=== PATIENT | female | born 1965 | race Caucasian/White ===

== ENCOUNTER 2017-04-24 18:07 | Emergency (ER) | payer SELFPAY ==
[~2017-04-24] VITALS: Ht 160 cm; Wt 81.6 kg
[2017-04-24] MEDS ORDERED: ONDANSETRON PF 4 MG/2 ML VIAL. ONE (18:11)
[2017-04-24] MEDS ORDERED: IV NORMAL SALINE 500ML BAG 500 ML IV ONE (18:30)
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
[2017-04-24] MEDS ORDERED: ONDANSETRON PF 4 MG/2 ML VIAL. IV ONE (19:00)
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
[2017-04-24 19:55] VITALS: BP 114/71
[2017-04-24] MEDS ORDERED: CYCL10TA2 PO (20:03)
[2017-04-24] MEDS ORDERED: NAPR-695 PO (20:05)
== END 2017-04-24 20:21 | disposition home or self-care (01) ==
LOC: ER 18:07
DX: S16.1XXA Strain of muscle, fascia and tendon at neck level, initial encounter (principal); M54.5 Low back pain; R51 Headache; Z88.5 Allergy status to narcotic agent; V43.52XA Car driver injured in collision with other type car in traffic accident, initial encounter; Y93.I9 Activity, other involving external motion; Y92.410 Unspecified street and highway as the place of occurrence of the external cause; Y99.8 Other external cause status
CPT/HCPCS: 70450; 72125; 72131; 96361; 96374; 99284; J2405; J7040

== ENCOUNTER → 2020-03-16 | Outpatient (CLI) | payer OTHER ==
[~2020-03-16] MED LIST: CYCL10TA2 PO; NAPR-695 PO
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
--- NOTE | 2020-03-16 11:22 | KCIC ---
STUDY: MRI of the left shoulder without contrast INDICATION: Left shoulder pain. COMPARISON: Left shoulder radiographs 08/31/2019 TECHNIQUE: Multiplanar MR imaging of the left shoulder performed without the use of intravenous or intra-articular contrast. FINDINGS: AC joint: Mild AC joint arthrosis. Trace mass effect on the supraspinatus myotendinous junction due to subclavicular spurring, image 12 series 7. Small volume fluid within the subacromial subdeltoid bursa Rotator cuff: The supraspinatus is somewhat thinned but no discrete tear is seen to account for this configuration. Fluid overlying the anterior to mid supraspinatus is within the bursa and the bursal sided fibers are smooth. No high-grade infraspinatus or teres minor tear. The subscapularis is intact. Normal rotator cuff muscular bulk and signal. Labrum: Poorly delineated posterior/superior aspect is favored artifact from magic angle. No discrete tear. Long head biceps tendon: Intact and normally located. Cartilage: Intact. Bones: No acute fracture or aggressive marrow signal abnormality. Miscellaneous: Normal volume shoulder joint fluid. Unremarkable axillary soft tissues. Impression: 1. No high-grade or full-thickness rotator cuff tear. Intact labrum and long head biceps tendon. 2. Small volume fluid within the subacromial subdeltoid bursa suggesting mild bursitis. Mild AC joint arthrosis with small subclavicular spurring exerting trace mass effect on the supraspinatus myotendinous junction. Electronically signed by: ALEXIA MCCARTY MD (03/16/2020 11:20 AM) [id number]
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
== END ==
LOC: KCIC MRI 07:55
PROVIDERS: ATTEND Family Medicine
DX: M47.812 Spondylosis without myelopathy or radiculopathy, cervical region (principal); M48.02 Spinal stenosis, cervical region; M19.012 Primary osteoarthritis, left shoulder; M51.36 Other intervertebral disc degeneration, lumbar region
CPT/HCPCS: 72141; 72148; 73221

== ENCOUNTER 2020-05-03 20:38 | Inpatient (IN) | payer OTHER ==
[~2020-05-03] VITALS: Ht 160 cm; Wt 52.2 kg
[2020-05-03 20:38] VITALS: BP 142/82
--- NOTE | 2020-05-03 20:40 | NUR ---
Patient admitted from [facility] ER via ambulance to room 418. Admitting diagnosis: abdominal pain RUQ with acute cholecystitis. Patient is allergic to Morphine. Patient is alert and oriented X4. Patient is NPO. Patient stated that her abdominal pain started on Thursday and progressively worsens into and she went to the ER. Abdominal ultrasound positive for acute Cholecystitis. Patient was brought to [facility] for surgical evaluation. Will continue to monitor.
[2020-05-03] MEDS ORDERED: ONDANSETRON PF 4 MG/2 ML VIAL. IVP PRN (21:30)
[2020-05-03] MEDS ORDERED: PROCHLORPERAZINE 10 MG/2 ML VIAL. IVP PRN (21:30)
[2020-05-03] MEDS ORDERED: BISACODYL 10 MG SUPP.RECT. PR PRN (21:30)
[2020-05-03] MEDS ORDERED: fentaNYL PF VIAL 100 MCG/2 ML VIAL IVP PRN (21:30)
[2020-05-03] MEDS ORDERED: IV RINGERS,LACTATED 1000ML 1,000 ML IV SCH (21:30)
[2020-05-03] MEDS ORDERED: METO-239 PO (21:40)
[2020-05-03] MEDS ORDERED: LEVO175T5 PO (21:40)
[2020-05-03] MEDS ORDERED: DEXTROSE 50% 25 GM / 50ML DISP.SYRIN. IV PRN (21:45)
[2020-05-03 23:14] VITALS: BP 151/79
[2020-05-03] MEDS ORDERED: KETO10TA PO (23:16)
[2020-05-03] MEDS ORDERED: OXYC1TAB19 PO (23:16)
[2020-05-03] MEDS ORDERED: SEMA1PEN SQ (23:16)
[2020-05-03] MEDS ORDERED: ICOS0.5C PO (23:16)
[2020-05-03] MEDS ORDERED: ONDA4TAB7 PO (23:16)
[2020-05-03] MEDS ORDERED: METF10007 PO (23:16)
[2020-05-03] MEDS ORDERED: DULO60CA6 PO (23:16)
[2020-05-03] MEDS ORDERED: ATOR40TA59 PO (23:16)
[2020-05-03] MEDS ORDERED: LISI1TAB37 PO (23:16)
[2020-05-04] VITALS (12 sets, daily range): BP systolic 107–149; BP diastolic 55–89
[2020-05-04] MEDS: PIPERACILLIN/TAZOBACTAM 3.375 GM in IV NORMAL SALINE 50ML 50 ML IV SCH ×3 (00:23→13:37)
--- NOTE | 2020-05-04 00:35 | NUR ---
Patient has a rash on her lower back. Patient states that she has had it for years and that her doctor is aware of the rash. The rash has been biopsied twice with no infectious results. Patient states the rash usually appears twice a year and then goes away.
[2020-05-04 04:43] LABS: BASO # 0.1 x10^3/uL (0.0-0.2); BASO % 1 % (0-3); EOS # 0.1 x10^3/uL (0.0-0.7); EOS % 1 % (0-3); HEMATOCRIT 36.8 % (36.0-47.0); HEMOGLOBIN 12.4 g/dL (12.0-15.5); LYMPH # 1.3 x10^3/uL (1.0-4.8); LYMPH % 12 % (24-48); MEAN CORPUSCULAR HEMOGLOBIN 30 pg (25-35); MEAN CORPUSCULAR HGB CONC 34 g/dL (31-37); MEAN CORPUSCULAR VOLUME 88 fL (79-100); MONO # 0.9 x10^3/uL (0.0-1.1); MONO % 8 % (0-9); NEUT # 8.7 x10^3/uL (1.8-7.7); NEUT % 78 % (31-73); PLATELET COUNT 279 x10^3/uL (140-400); RED BLOOD COUNT 4.19 x10^6/uL (3.50-5.40); RED CELL DISTRIBUTION WIDTH 14.1 % (11.5-14.5); WHITE BLOOD COUNT 11.2 x10^3/uL (4.0-11.0)
[2020-05-04] MEDS: LEVOTHYROXINE 175 MCG TABLET PO SCH (06:00)
[2020-05-04] MEDS: METOPROLOL SUCC 24HR ER 25 MG TAB.ER.24H. PO SCH ×2 (07:00→08:20)
[2020-05-04] MEDS: INSULIN LISPRO 300 UNITS/3 ML VIAL. SQ SCH ×4 (08:00→21:00)
--- NOTE | 2020-05-04 08:17 | PDOC1 ---
History and Physical Date of Admission Date of Admission DATE: 05/04/20 TIME: 08:09 Identification/Chief Complaint Chief Complaint Abdominal pain Source Source: Patient History of Present Illness History of Present Illness Patient is a 54-year-old female with past medical history of type 2 diabetes, hyperlipidemia, hypertension, hypothyroidism, who presented to [facility] ER for right upper quadrant pain that started yesterday morning around 0900. Patient reports sharp right upper quadrant pain, 7/10, with associated nausea and vomiting. Right upper quadrant ultrasound performed at [facility] ER showed findings consistent with acute cholecystitis, no biliary dilatation. Patient [facility] for general surgery coverage. She currently rates her pain 4/10, improved with medication. WBC 11.2 Past Medical History Past Medical History Hypertension, DM2, HLD, hypothyroidism, depression, URIEL Past Surgical History Past Surgical History Hysterectomy, bladder sling Family History Family History CAD Social History Smoke: No ALCOHOL: none Drugs: None Current Medications Current Medications Current Medications Ringer's Solution 1,000 ml @ 100 mls/hr Q10H IV Last administered on 05/03/20at 22:17; Start 05/03/20 at 21:30; Stop 05/04/20 at 07:29; Status DC Ondansetron HCl (Zofran) 4 mg PRN Q6HRS PRN IVP NAUSEA/VOMITING; Start 05/03/20 at 21:30 Prochlorperazine Edisylate (Compazine) 10 mg PRN Q6HRS PRN IVP NAUSEA/VOMITING; Start 05/03/20 at 21:30 Bisacodyl (Dulcolax Supp) 10 mg PRN DAILY PRN NE CONSTIPATION; Start 05/03/20 at 21:30 Enoxaparin Sodium (Lovenox 40mg Syringe) 40 mg Q24H SQ ; Start 05/04/20 at 12:3 0 Piperacillin Sod/ Tazobactam Sod 3.375 gm/Sodium Chloride 50 ml @ 100 mls/hr Q6HRS IV Last administered on 05/04/20at 06:27; Start 05/04/20 at 00:00; Stop 05/04/20 at 12:29 Fentanyl Citrate (Fentanyl 2ml Vial) 50 mcg PRN Q2HR PRN IVP PAIN Last admin istered on 05/03/20at 22:20; Start 05/03/20 at 21:30 Insulin Human Lispro (HumaLOG) 0-9 UNITS TIDWMEALHC SQ ; Start 05/04/20 at 08:00 Dextrose (Dextrose 50%-Water Syringe) 12.5 gm PRN Q15MIN PRN IV SEE COMMENTS; Start 05/03/20 at 21:45 Levothyroxine Sodium (Synthroid) 175 mcg DAILY06 PO ; Start 05/04/20 at 06:00 Metoprolol Succinate (Toprol Xl) 25 mg DAILY07 PO ; Start 05/04/20 at 07:00 Active Scripts Active Metoprolol Succinate ( Xl ) (Metoprolol Succinate) 25 Mg Tab.er.24h 1 Tab PO DAILY 90 Days Levothyroxine Sodium 175 Mcg Tablet 1 Tab PO DAILY06 90 Days Naproxen 375 Mg Tablet 1 Tab PO BID 5 Days Cyclobenzaprine Hcl 10 Mg Tablet 1 Tab PO TID PRN Reported Cymbalta (Duloxetine Hcl) 60 Mg Capsule.dr 1 Cap PO DAILY Vascepa (Icosapent Ethyl) 0.5 Gm Capsule 0.5 Gm PO BID Atorvastatin Calcium 40 Mg Tablet 2 Tab PO DAILY Ozempic (Semaglutide) 1 Mg/0.75 Ml Pen.injctr 1 Mg SQ WEEKLY Metformin Hcl 1,000 Mg Tablet 1,000 Mg PO DAILYWBKFT Lisinopril-Hctz 20-12.5 Mg Tab (Lisinopril/Hydrochlorothiazide) 1 Each Tablet 1 Tab PO DAILY Zofran (Ondansetron Hcl) 4 Mg Tablet 1 Tab PO PRN Q6HRS PRN Ketorolac Tromethamine 10 Mg Tablet 1 Tab PO PRN Q6HRS Percocet 7.5-325 Mg Tablet (Oxycodone/Acetaminophen) 1 Each Tablet 1 Tab PO QIDPRN PRN MDD 4 Tablet(s) 30 Days Allergies Allergies: Coded Allergies: morphine (Unverified Allergy, Severe, "ANAPHLYAXIS", 04/24/17) ROS Review of System GENERAL: No history of weight change, weakness or fevers. SKIN: No bruising, hair changes or rashes. EYES: No blurred, double or loss of vision. NOSE AND THROAT: No history of nosebleeds, hoarseness or sore throat. HEART: Denies chest pain, denies palpitations. LUNGS: Denies cough, hemoptysis, wheezing or shortness of breath. GASTROINTESTINAL: RUQ abdominal pain, nausea, vomiting. GENITOURINARY: Denies dysuria, frequency, urgency, hematuria. NEUROLOGIC: Denies history of numbness, tingling, tremor or weakness. PSYCHIATRIC: Denies anxiety, denies depression. ENDOCRINE: No history of heat or cold intolerance, polyuria or polydipsia. EXTREMITIES: Denies muscle weakness, joint pain, pain on walking or stiffness. Physical Exam Physical Exam General: Alert, Oriented X3, Cooperative, No acute distress HEENT: PERRLA, EOMI Lungs: Clear to auscultation, Normal air movement Heart: RRR, no murmurs Cardiovascular: S1, S2 Abdomen: Right upper quadrant tenderness, normal bowel sounds, Soft. Extremities: No clubbing, No cyanosis Skin: No rashes, No significant lesion Neuro: Normal speech, Normal tone, Sensation intact Psych/Mental Status: Mental status NL, Mood NL Vitals Vitals Vital Signs Date Time Temp Pulse Resp B/P (MAP) Pulse Ox O2 Delivery O2 Flow Rate FiO2 05/04/20 07:00 98.5 78 20 120/76 (91) 94 Room Air 98.5 Labs Labs Laboratory Tests Test 05/03/20 22:45 05/04/20 04:20 05/04/20 07:45 SARS-CoV-2 Antigen (Rapid) Negative (NEGATIVE) White Blood Count 11.2 x10^3/uL (4.0-11.0) Red Blood Count 4.19 x10^6/uL (3.50-5.40) Hemoglobin 12.4 g/dL (12.0-15.5) Hematocrit 36.8 % (36.0-47.0) Mean Corpuscular Volume 88 fL (79-100) Mean Corpuscular Hemoglobin 30 pg (25-35) Mean Corpuscular Hemoglobin Concent 34 g/dL (31-37) Red Cell Distribution Width 14.1 % (11.5-14.5) Platelet Count 279 x10^3/uL (140-400) Neutrophils (%) (Auto) 78 % (31-73) Lymphocytes (%) (Auto) 12 % (24-48) Monocytes (%) (Auto) 8 % (0-9) Eosinophils (%) (Auto) 1 % (0-3) Basophils (%) (Auto) 1 % (0-3) Neutrophils # (Auto) 8.7 x10^3/uL (1.8-7.7) Lymphocytes # (Auto) 1.3 x10^3/uL (1.0-4.8) Monocytes # (Auto) 0.9 x10^3/uL (0.0-1.1) Eosinophils # (Auto) 0.1 x10^3/uL (0.0-0.7) Basophils # (Auto) 0.1 x10^3/uL (0.0-0.2) Glucose (Fingerstick) 90 mg/dL (70-99) Laboratory Tests Test 05/03/20 22:45 05/04/20 04:20 05/04/20 07:45 SARS-CoV-2 Antigen (Rapid) Negative (NEGATIVE) White Blood Count 11.2 x10^3/uL (4.0-11.0) Red Blood Count 4.19 x10^6/uL (3.50-5.40) Hemoglobin 12.4 g/dL (12.0-15.5) Hematocrit 36.8 % (36.0-47.0) Mean Corpuscular Volume 88 fL (79-100) Mean Corpuscular Hemoglobin 30 pg (25-35) Mean Corpuscular Hemoglobin Concent 34 g/dL (31-37) Red Cell Distribution Width 14.1 % (11.5-14.5) Platelet Count 279 x10^3/uL (140-400) Neutrophils (%) (Auto) 78 % (31-73) Lymphocytes (%) (Auto) 12 % (24-48) Monocytes (%) (Auto) 8 % (0-9) Eosinophils (%) (Auto) 1 % (0-3) Basophils (%) (Auto) 1 % (0-3) Neutrophils # (Auto) 8.7 x10^3/uL (1.8-7.7) Lymphocytes # (Auto) 1.3 x10^3/uL (1.0-4.8) Monocytes # (Auto) 0.9 x10^3/uL (0.0-1.1) Eosinophils # (Auto) 0.1 x10^3/uL (0.0-0.7) Basophils # (Auto) 0.1 x10^3/uL (0.0-0.2) Glucose (Fingerstick) 90 mg/dL (70-99) VTE Prophylaxis Ordered VTE Prophylaxis Devices: No VTE Pharmacological Prophylaxi: Yes Assessment/Plan Assessment/Plan Acute cholecystitis DM2 Hypertension Plan: Consult general surgery Patient is n.p.o. for cholecystectomy today Continue IV antibiotics Pain control Low-dose insulin sliding scale Anticipate discharge likely tomorrow FEN - NPO, then cardiac diet PPX - Lovenox FULL CODE Dispo - inpatient for above Justifications for Admission Other Justification ARGELIA SHAH MD May 04, 2020 08:17
[2020-05-04] MEDS ORDERED: ROCURONIUM 50 MG/5 ML VIAL. ONE (08:26)
[2020-05-04] MEDS ORDERED: NEOSTIGMINE METHYLSULFATE 5 MG/5 ML SYRINGE. ONE (08:26)
[2020-05-04] MEDS ORDERED: GLYCOPYRROLATE 1 MG/5 ML VIAL. ONE (08:26)
[2020-05-04] MEDS ORDERED: fentaNYL PF VIAL 100 MCG/2 ML VIAL ONE ×3 (08:26→10:55)
[2020-05-04] MEDS ORDERED: MIDAZOLAM HCL/PF 2 MG/2 ML VIAL. ONE (08:26)
[2020-05-04] MEDS ORDERED: DEXAMETHASONE SOD PHOS 4 MG/ML VIAL ONE (08:27)
[2020-05-04] MEDS ORDERED: LIDOCAINE 2% PF 5 ML VIAL. ONE (08:27)
[2020-05-04] MEDS ORDERED: KETOROLAC 30 MG/ML VIAL. ONE (08:27)
[2020-05-04] MEDS ORDERED: ONDANSETRON PF 4 MG/2 ML VIAL. ONE (08:27)
[2020-05-04] MEDS ORDERED: PROPOFOL 10 MG/ML (20ML) VIAL. IV ONE (08:27)
--- NOTE | 2020-05-04 08:35 | PDOC2 ---
KATHIA MULLINS NEUROLOGY TECHNOLOGIST 05/04/20 0835: CONSULT Date of Consult Date of Consult DATE: 05/04/20 TIME: 08:31 Reason for Consult Reason for Consult: cholecystitis Referring Physician Referring Physician: ROSARIO WAY Identification/Chief Complaint Chief Complaint abdominal pain Source Source: Chart review, Patient History of Present Illness Reason for Visit: Acute onset abdominal pain RUQ and radiates to back.. Associated nausea and emesis. No similar symptoms in past. No constipation or diarrhea Past Medical History Cardiovascular: HTN, Hyperlipidemia Pulmonary: Pneumonia Psych: Depression Endocrine: Diabetes Past Surgical History Past Surgical History: Other (bladder) Family History Family History: Other (noncontributory to current illness ) Social History No ALCOHOL: none Drugs: None Current Medications Current Medications Current Medications Ringer's Solution 1,000 ml @ 100 mls/hr Q10H IV Last administered on 05/03/20at 22:17; Start 05/03/20 at 21:30; Stop 05/04/20 at 07:29; Status DC Ondansetron HCl (Zofran) 4 mg PRN Q6HRS PRN IVP NAUSEA/VOMITING; Start 05/03/20 at 21:30 Prochlorperazine Edisylate (Compazine) 10 mg PRN Q6HRS PRN IVP NAUSEA/VOMITING; Start 05/03/20 at 21:30 Bisacodyl (Dulcolax Supp) 10 mg PRN DAILY PRN [place] CONSTIPATION; Start 05/03/20 at 21:30 Enoxaparin Sodium (Lovenox 40mg Syringe) 40 mg Q24H SQ ; Start 05/04/20 at 12:30 Piperacillin Sod/ Tazobactam Sod 3.375 gm/Sodium Chloride 50 ml @ 100 mls/hr Q6HRS IV Last administered on 05/04/20at 06:27; Start 05/04/20 at 00:00; Stop 05/04/20 at 12:29 Fentanyl Citrate (Fentanyl 2ml Vial) 50 mcg PRN Q2HR PRN IVP PAIN Last administered on 05/03/20at 22:20; Start 05/03/20 at 21:30 Insulin Human Lispro (HumaLOG) 0-9 UNITS TIDWMEALHC SQ ; Start 05/04/20 at 08:00 Dextrose (Dextrose 50%-Water Syringe) 12.5 gm PRN Q15MIN PRN IV SEE COMMENTS; Start 05/03/20 at 21:45 Levothyroxine Sodium (Synthroid) 175 mcg DAILY06 PO ; Start 05/04/20 at 06:00 Metoprolol Succinate (Toprol Xl) 25 mg DAILY07 PO Last administered on 05/04/20at 08:20; Start 05/04/20 at 07:00 Rocuronium [place] (Zemuron) 50 mg STK-MED ONCE .ROUTE ; Start 05/04/20 at 08:26; Stop 05/04/20 at 08:26; Status DC Fentanyl Citrate (Fentanyl 2ml Vial) 100 mcg STK-MED ONCE .ROUTE ; Start 05/04/20 at 08:26; Stop 05/04/20 at 08:26; Status DC Neostigmine [place] (Neostigmine Methylsulfate) 5 mg STK-MED ONCE .ROUTE ; Start 05/04/20 at 08:26; Stop 05/04/20 at 08:27; Status DC Midazolam HCl (Versed) 2 mg STK-MED ONCE .ROUTE ; Start 05/04/20 at 08:26; Stop 05/04/20 at 08:27; Status DC Glycopyrrolate (Robinul) 1 mg STK-MED ONCE .ROUTE ; Start 05/04/20 at 08:26; Stop 05/04/20 at 08:27; Status DC Propofol (Diprivan) 200 mg STK-MED ONCE IV ; Start 05/04/20 at 08:27; Stop 05/04/20 at 08:27; Status DC Ketorolac Tromethamine (Toradol 30mg Vial) 30 mg STK-MED ONCE .ROUTE ; Start 05/04/20 at 08:27; Stop 05/04/20 at 08:27; Status DC Ondansetron HCl (Zofran) 4 mg STK-MED ONCE .ROUTE ; Start 05/04/20 at 08:27; Stop 05/04/20 at 08:27; Status DC Lidocaine HCl (Lidocaine Pf 2% Vial) 5 ml STK-MED ONCE .ROUTE ; Start 05/04/20 at 08:27; Stop 05/04/20 at 08:27; Status DC Dexamethasone Sodium Phosphate (Decadron) 4 mg STK-MED ONCE .ROUTE ; Start 05/04/20 at 08:27; Stop 05/04/20 at 08:27; Status DC Active Scripts Active Metoprolol Succinate ( Xl ) (Metoprolol Succinate) 25 Mg Tab.er.24h 1 Tab PO DAILY 90 Days Levothyroxine Sodium 175 Mcg Tablet 1 Tab PO DAILY06 90 Days Naproxen 375 Mg Tablet 1 Tab PO BID 5 Days Cyclobenzaprine Hcl 10 Mg Tablet 1 Tab PO TID PRN Reported Cymbalta (Duloxetine Hcl) 60 Mg Capsule.dr 1 Cap PO DAILY Vascepa (Icosapent Ethyl) 0.5 Gm Capsule 0.5 Gm PO BID Atorvastatin Calcium 40 Mg Tablet 2 Tab PO DAILY Ozempic (Semaglutide) 1 Mg/0.75 Ml Pen.injctr 1 Mg SQ WEEKLY Metformin Hcl 1,000 Mg Tablet 1,000 Mg PO DAILYWBKFT Lisinopril-Hctz 20-12.5 Mg Tab (Lisinopril/Hydrochlorothiazide) 1 Each Tablet 1 Tab PO DAILY Zofran (Ondansetron Hcl) 4 Mg Tablet 1 Tab PO PRN Q6HRS PRN Ketorolac Tromethamine 10 Mg Tablet 1 Tab PO PRN Q6HRS Percocet 7.5-325 Mg Tablet (Oxycodone/Acetaminophen) 1 Each Tablet 1 Tab PO QIDPRN PRN MDD 4 Tablet(s) 30 Days Allergies Allergies: Coded Allergies: morphine (Unverified Allergy, Severe, "ANAPHLYAXIS", 04/24/17) ROS General: No: Chills, Other (fevers ) PSYCHOLOGICAL ROS: No: Anxiety, Depression Eyes: No Blurry vision, No Double vision HEENT: No: Heacaches, Sore Throat Hematological and Lymphatic: No: Bleeding Problems, Blood Clots Respiratory: No: Cough, Shortness of breath Cardiovascular: No Chest Pain, No Palpitations Gastrointestinal: Yes Other (see hpi) Genitourinary: No Dysuria, No Hematuria Musculoskeletal: No Joint Pain, No Muscle Pain Neurological: No Impaired Coord/balance, No Numbness/Tingling Skin: No Pruritus, No Rash Physical Exam General: Alert, Oriented X3, Cooperative HEENT: Atraumatic, PERRLA Lungs: Clear to auscultation, Normal air movement Heart: Regular rate, Normal S1, Normal S2 Abdomen: Soft, Other (TTP RUQ) Extremities: No clubbing, No cyanosis Skin: No rashes, No breakdown Neuro: Normal gait, Normal speech Psych/Mental Status: Mental status NL, Mood NL MUSCULOSKELETAL: No deformity, No swelling Vitals VITALS Vital Signs Date Time Temp Pulse Resp B/P (MAP) Pulse Ox O2 Delivery O2 Flow Rate FiO2 05/04/20 08:20 78 120/76 05/04/20 07:00 98.5 20 94 Room Air 98.5 Labs Labs Laboratory Tests Test 05/03/20 22:45 05/04/20 04:20 05/04/20 07:45 SARS-CoV-2 Antigen (Rapid) Negative (NEGATIVE) White Blood Count 11.2 x10^3/uL (4.0-11.0) Red Blood Count 4.19 x10^6/uL (3.50-5.40) Hemoglobin 12.4 g/dL (12.0-15.5) Hematocrit 36.8 % (36.0-47.0) Mean Corpuscular Volume 88 fL (79-100) Mean Corpuscular Hemoglobin 30 pg (25-35) Mean Corpuscular Hemoglobin Concent 34 g/dL (31-37) Red Cell Distribution Width 14.1 % (11.5-14.5) Platelet Count 279 x10^3/uL (140-400) Neutrophils (%) (Auto) 78 % (31-73) Lymphocytes (%) (Auto) 12 % (24-48) Monocytes (%) (Auto) 8 % (0-9) Eosinophils (%) (Auto) 1 % (0-3) Basophils (%) (Auto) 1 % (0-3) Neutrophils # (Auto) 8.7 x10^3/uL (1.8-7.7) Lymphocytes # (Auto) 1.3 x10^3/uL (1.0-4.8) Monocytes # (Auto) 0.9 x10^3/uL (0.0-1.1) Eosinophils # (Auto) 0.1 x10^3/uL (0.0-0.7) Basophils # (Auto) 0.1 x10^3/uL (0.0-0.2) Glucose (Fingerstick) 90 mg/dL (70-99) Laboratory Tests Test 05/03/20 22:45 05/04/20 04:20 05/04/20 07:45 SARS-CoV-2 Antigen (Rapid) Negative (NEGATIVE) White Blood Count 11.2 x10^3/uL (4.0-11.0) Red Blood Count 4.19 x10^6/uL (3.50-5.40) Hemoglobin 12.4 g/dL (12.0-15.5) Hematocrit 36.8 % (36.0-47.0) Mean Corpuscular Volume 88 fL (79-100) Mean Corpuscular Hemoglobin 30 pg (25-35) Mean Corpuscular Hemoglobin Concent 34 g/dL (31-37) Red Cell Distribution Width 14.1 % (11.5-14.5) Platelet Count 279 x10^3/uL (140-400) Neutrophils (%) (Auto) 78 % (31-73) Lymphocytes (%) (Auto) 12 % (24-48) Monocytes (%) (Auto) 8 % (0-9) Eosinophils (%) (Auto) 1 % (0-3) Basophils (%) (Auto) 1 % (0-3) Neutrophils # (Auto) 8.7 x10^3/uL (1.8-7.7) Lymphocytes # (Auto) 1.3 x10^3/uL (1.0-4.8) Monocytes # (Auto) 0.9 x10^3/uL (0.0-1.1) Eosinophils # (Auto) 0.1 x10^3/uL (0.0-0.7) Basophils # (Auto) 0.1 x10^3/uL (0.0-0.2) Glucose (Fingerstick) 90 mg/dL (70-99) Assessment/Plan Assessment/Plan acute cholecystitis plan lap jean carlos today KELLY ARCHER MD 05/04/20 0911: CONSULT Assessment/Plan Assessment/Plan Patient seen and examined by me. Currently resting in bed complaint of right upper quadrant abdominal pain. Ultrasound showing thickened gallbladder mildly distended with some pericholecystic fluid no gallstones. Abdomen is soft nondistended tender the right upper quadrant she does have a midline scar from the umbilicus to the pelvis. Reviewed cholecystectomy patient agrees to proceed with surgery KATHIA MULLINS APRN May 04, 2020 08:35 KELLY ARCHER MD May 04, 2020 09:11
[2020-05-04] MEDS ORDERED: SURGICEL HEMOSTAT 4X8 EACH. ONE (09:14)
[2020-05-04] MEDS ORDERED: BUPIVACAINE-EPI 0.25%-1:200000 MPF 30 ML VIAL. INJ ONE (09:30)
--- NOTE | 2020-05-04 10:25 | PDOC4 ---
Operative Note Operative Note Date: 1029 at 1020 Preoperative diagnosis: Acalculous cholecystitis Postoperative diagnosis: Same Procedure: Laparoscopic cholecystectomy Surgeon: Lalit Specimen: Gallbladder Dictation: Patient is 54-year-old female was admitted to the hospital with right upper quadrant abdominal pain elevated white count and a ultrasound showing thickened gallbladder wall with pericholecystic fluid. Procedure of laparoscopic cholecystectomy was explained to the patient detail risk benefits were also discussed including bleeding infection injury to intra-abdominal contents possibly necessitating further or open operations alternatives to this procedure also discussed with the patient who seemed to understand and gave both verbal and written consent to have the procedure performed. Patient was taken to the operating room placed in the supine position general anesthesia was initiated once patient was sleeping intubated her abdomen was prepped and draped usual sterile fashion using ChloraPrep. Area in the left upper quadrant was injected with quarter percent Marcaine with epinephrine incision was made 11 blade scalpel and a 5 mm Visiport was placed under direct visualization into the abdomen creating pneumoperitoneum. The abdomen was inspected no other red maladies were noted she did have quite a few adhesions in the pelvis below the umbilicus but otherwise the upper abdomen was clear a 11 mm port was placed at the umbilicus under direct visualization a 5 mm port was placed in the epigastrium a 5 mm port was placed in the right midabdomen and a 5 mm port was placed in the right lateral abdomen. The dome of the gallbladder is grasped retracted cephalad the infundibulum of the gallbladder is grasped retracted laterally exposing the triangle of adherent tissues the triangle were taken down with blunt dissection using a [place]. The cystic duct was visualized doubly clipped and transected the cystic artery was also visualized and clipped and transected with electrocautery. The gallbladder was taken off the liver with hook electrocautery placed in Endo Catch bag removed at the umbilicus. Right upper quadrant is irrigated suctioned dry hemostasis deemed be appropriate the pneumoperitoneum was reduced all ports were removed the fascial defect at the umbilicus closed with a [id number] Vicryl suture and the skin was reapproximated all port sites for subcuticular Monocryl Mastisol Steri-Strips and island dressings were applied. Patient was awakened and extubated in the operating room taken to recovery in stable condition all sponge instrument needle counts listed as correct estimated blood loss 10 mL. KELLY ARCHER MD May 04, 2020 10:25
[2020-05-04] MEDS ORDERED: oxyCODONE/APAP 5/325 1 TAB TABLET PO PRN (10:30)
[2020-05-04] MEDS ORDERED: INSULIN LISPRO 100 UNIT/ML 3ML VIAL for OP,RR ONLY. SQ PRN (10:45)
[2020-05-04] MEDS ORDERED: HYDROmorphone 2 MG/ML VIAL IV PRN (10:45)
[2020-05-04] MEDS ORDERED: PROCHLORPERAZINE 10 MG/2 ML VIAL. IV PRN (10:45)
[2020-05-04] MEDS ORDERED: fentaNYL PF VIAL 100 MCG/2 ML VIAL IV PRN (10:45)
[2020-05-04] MEDS: fentaNYL PF VIAL 100 MCG/2 ML VIAL IV PRN ×2 (11:00→11:13)
[2020-05-04 11:40] LABS: ALBUMIN 3.2 g/dL (3.4-5.0); CALCIUM 8.3 mg/dL (8.5-10.1); CREATININE 0.9 mg/dL (0.6-1.0); GFR 64.8; POTASSIUM 3.4 mmol/L (3.5-5.1); TOTAL BILIRUBIN 0.7 mg/dL (0.2-1.0); TOTAL PROTEIN 6.4 g/dL (6.4-8.2)
[2020-05-04] MEDS: oxyCODONE/APAP 5/325 1 TAB TABLET PO PRN ×2 (13:35→21:33)
[2020-05-04] MEDS: ENOXAPARIN 40 MG/0.4 ML SYRINGE. SQ SCH (13:37)
[2020-05-05 03:00] VITALS: BP 137/86
[2020-05-05] MEDS: LEVOTHYROXINE 175 MCG TABLET PO SCH (05:35)
--- NOTE | 2020-05-05 06:38 | NUR ---
RN tried to titrate patient off oxygen this morning at 0230 but oxygen saturation without oxygen went down. Will try again this morning.
[2020-05-05 07:00] VITALS: BP 128/79
[2020-05-05] MEDS: INSULIN LISPRO 300 UNITS/3 ML VIAL. SQ SCH ×4 (08:00→21:00)
[2020-05-05] MEDS: METOPROLOL SUCC 24HR ER 25 MG TAB.ER.24H. PO SCH (08:56)
[2020-05-05] MEDS: oxyCODONE/APAP 5/325 1 TAB TABLET PO PRN ×3 (08:56→21:52)
--- NOTE | 2020-05-05 09:44 | PDOC ---
[employer] PROGRESS NOTE Date of Service DOS: DATE: 05/05/20 TIME: 09:41 Chief Complaint Chief Complaint Acute cholecystitis DM2 Hypertension Plan: Consult general surgery Continue IV antibiotics Pain control Low-dose insulin sliding scale Anticipate discharge soon History of Present Illness History of Present Illness Patient is a 54-year-old female with past medical history of type 2 diabetes, hyperlipidemia, hypertension, hypothyroidism, who presented to [facility] ER for right upper quadrant pain that started yesterday morning around 0900. Patient reports sharp right upper quadrant pain, 7/10, with associated nausea and vomiting. Right upper quadrant ultrasound performed at [facility] ER showed findings consistent with acute cholecystitis, no biliary dilatation. Patient was transferred to [facility] for general surgery coverage. She currently rates her pain 4/10, improved with medication. 05/05/2020 She is status post cholecystectomy yesterday. Breathing on 2 L O2 by nasal cannula. She reports moderate incisional pain, 3/10, controlled with medication. If we can wean off O2 will discharge tomorrow. Discussed incentive spirometer with patient. Vitals/I&O Vitals/I&O: Vital Signs Date Time Temp Pulse Resp B/P (MAP) Pulse Ox O2 Delivery O2 Flow Rate FiO2 05/05/20 08:56 Room Air 05/05/20 08:56 63 128/79 05/05/20 07:00 98.2 18 90 98.2 05/05/20 03:00 2.0 I & O 05/04/20 05/04/20 05/05/20 14:59 22:59 06:59 Intake Total 1050 ml 480 ml Output Total 505 ml Balance 545 ml 480 ml Physical Exam General: Alert, Oriented X3, Cooperative Heart: Regular rate, Normal S1, Normal S2 Abdomen: Soft, Other (TTP RUQ) Extremities: No clubbing, No cyanosis Skin: No rashes, No breakdown Labs Labs: Laboratory Tests Test 05/04/20 11:01 05/04/20 16:42 05/04/20 21:36 05/05/20 07:39 Glucose (Fingerstick) 178 mg/dL (70-99) 186 mg/dL (70-99) 145 mg/dL (70-99) 113 mg/dL (70-99) Review of Systems Review of Systems: Denies fever, denies chest pain, denies shortness of breath. Assessment and Plan Problems: (1) Acute cholecystitis Comment Review of Relevant I have reviewed the following items caden (where applicable) has been applied. Medications: Current Medications Medications (Trade) Dose Ordered Sig/Errol Route PRN Reason Start Time Stop Time Status Last Admin Dose Admin Enoxaparin Sodium (Lovenox 40mg Syringe) 40 mg Q24H SQ 05/04/20 12:30 05/04/20 13:37 Oxycodone/ Acetaminophen (Percocet 5/325) 1 tab PRN Q4HRS PRN PO MODERATE PAIN 05/04/20 10:30 05/05/20 08:56 Oxycodone/ Acetaminophen (Percocet 5/325) 2 tab PRN Q4HRS PRN PO SEVERE PAIN 05/04/20 10:30 05/04/20 16:50 Fentanyl Citrate (Fentanyl 2ml Vial) 50 mcg PRN Q5MIN PRN IV MODERATE TO SEVERE PAIN 05/04/20 10:45 05/05/20 10:44 05/04/20 11:13 Insulin Human Lispro (HumaLOG VIAL for OP,RR ONLY) 0-10 units PRN Q1HR PRN SQ PER PROTOCOL 05/04/20 10:45 05/05/20 10:44 05/04/20 11:07 Justifications for Admission Other Justification ARGELIA SHAH MD May 05, 2020 09:44
[2020-05-05 11:00] VITALS: BP 149/88
--- NOTE | 2020-05-05 11:00 | NUR ---
Attempted to removed patients oxygen, SpO2 only was 86-87% on room air, re-applied the 2L of oxygen and SpO2 went to 90%, will continue to monitor patient.
[2020-05-05] MEDS: ENOXAPARIN 40 MG/0.4 ML SYRINGE. SQ SCH (11:38)
--- NOTE | 2020-05-05 12:22 | PDOC ---
PROGRESS NOTES Date of Service DATE: 05/05/20 TIME: 12:21 Subjective Subjective pt feels "ok", states oxygen level has been low of nasal cannula Objective Objective Vital Signs Date Time Temp Pulse Resp B/P (MAP) Pulse Ox O2 Delivery O2 Flow Rate FiO2 05/05/20 08:56 Room Air 05/05/20 08:56 63 128/79 05/05/20 07:00 98.2 18 90 98.2 05/05/20 03:00 2.0 Intake and Output 05/05/20 07:00 Intake Total 1530 ml Output Total 505 ml Balance 1025 ml Intake Oral 480 ml IV Total 1050 ml Output Urine Total 500 ml Estimated Blood Loss 5 ml # Voids 4 Physical Exam Abdomen: Soft Assessment Assessment S/P lap jean carlos Plan Plan of Care OK to discharge from our standpoint when oxygen status stable; FU with Dr Cohn in 2 weeks Comment Review of Relevant I have reviewed the following items caden (where applicable) has been applied. Labs Laboratory Tests Test 05/03/20 22:45 05/04/20 04:20 05/04/20 07:45 05/04/20 11:01 SARS-CoV-2 Antigen (Rapid) Negative (NEGATIVE) White Blood Count 11.2 x10^3/uL (4.0-11.0) Red Blood Count 4.19 x10^6/uL (3.50-5.40) Hemoglobin 12.4 g/dL (12.0-15.5) Hematocrit 36.8 % (36.0-47.0) Mean Corpuscular Volume 88 fL (79-100) Mean Corpuscular Hemoglobin 30 pg (25-35) Mean Corpuscular Hemoglobin Concent 34 g/dL (31-37) Red Cell Distribution Width 14.1 % (11.5-14.5) Platelet Count 279 x10^3/uL (140-400) Neutrophils (%) (Auto) 78 % (31-73) Lymphocytes (%) (Auto) 12 % (24-48) Monocytes (%) (Auto) 8 % (0-9) Eosinophils (%) (Auto) 1 % (0-3) Basophils (%) (Auto) 1 % (0-3) Neutrophils # (Auto) 8.7 x10^3/uL (1.8-7.7) Lymphocytes # (Auto) 1.3 x10^3/uL (1.0-4.8) Monocytes # (Auto) 0.9 x10^3/uL (0.0-1.1) Eosinophils # (Auto) 0.1 x10^3/uL (0.0-0.7) Basophils # (Auto) 0.1 x10^3/uL (0.0-0.2) Sodium Level 143 mmol/L (136-145) Potassium Level 3.4 mmol/L (3.5-5.1) Chloride Level 106 mmol/L (98-107) Carbon Dioxide Level 28 mmol/L (21-32) Anion Gap 9 (6-14) Blood Urea Nitrogen 23 mg/dL (7-20) Creatinine 0.9 mg/dL (0.6-1.0) Estimated GFR (Cockcroft-Gault) 64.8 BUN/Creatinine Ratio 26 (6-20) Glucose Level 88 mg/dL (70-99) Calcium Level 8.3 mg/dL (8.5-10.1) Total Bilirubin 0.7 mg/dL (0.2-1.0) Aspartate Amino Transf (AST/SGOT) 132 U/L (15-37) Alanine Aminotransferase (ALT/SGPT) 221 U/L (14-59) Alkaline Phosphatase 90 U/L (46-116) Total Protein 6.4 g/dL (6.4-8.2) Albumin 3.2 g/dL (3.4-5.0) Albumin/Globulin Ratio 1.0 (1.0-1.7) Glucose (Fingerstick) 90 mg/dL (70-99) 178 mg/dL (70-99) Test 05/04/20 16:42 05/04/20 21:36 05/05/20 07:39 05/05/20 11:08 Glucose (Fingerstick) 186 mg/dL (70-99) 145 mg/dL (70-99) 113 mg/dL (70-99) 172 mg/dL (70-99) Laboratory Tests Test 05/04/20 16:42 05/04/20 21:36 05/05/20 07:39 05/05/20 11:08 Glucose (Fingerstick) 186 mg/dL (70-99) 145 mg/dL (70-99) 113 mg/dL (70-99) 172 mg/dL (70-99) Medications Current Medications Ringer's Solution 1,000 ml @ 100 mls/hr Q10H IV Last administered on 05/03/20at 22:17; Start 05/03/20 at 21:30; Stop 05/04/20 at 07:29; Status DC Ondansetron HCl (Zofran) 4 mg PRN Q6HRS PRN IVP NAUSEA/VOMITING, 1ST CHOICE; Start 05/03/20 at 21:30 Prochlorperazine Edisylate (Compazine) 10 mg PRN Q6HRS PRN IVP NAUSEA/VOMITING, 2ND CHOICE; Start 05/03/20 at 21:30 Bisacodyl (Dulcolax Supp) 10 mg PRN DAILY PRN [place] CONSTIPATION; Start 05/03/20 at 21:30 Enoxaparin Sodium (Lovenox 40mg Syringe) 40 mg Q24H SQ Last administered on 05/05/20at 11:38; Start 05/04/20 at 12:30 Piperacillin Sod/ Tazobactam Sod 3.375 gm/Sodium Chloride 50 ml @ 100 mls/hr Q6HRS IV Last administered on 05/04/20at 13:37; Start 05/04/20 at 00:00; Stop 05/04/20 at 12:29; Status DC Fentanyl Citrate (Fentanyl 2ml Vial) 50 mcg PRN Q2HR PRN IVP PAIN Last administered on 05/03/20at 22:20; Start 05/03/20 at 21:30 Insulin Human Lispro (HumaLOG) 0-9 UNITS TIDWMEALHC SQ Last administered on 05/05/20at 11:42; Start 05/04/20 at 08:00 Dextrose (Dextrose 50%-Water Syringe) 12.5 gm PRN Q15MIN PRN IV SEE COMMENTS; Start 05/03/20 at 21:45 Levothyroxine Sodium (Synthroid) 175 mcg DAILY06 PO Last administered on 05/05/20at 05:35; Start 05/04/20 at 06:00 Metoprolol Succinate (Toprol Xl) 25 mg DAILY07 PO Last administered on 05/05/20at 08:56; Start 05/04/20 at 07:00 Rocuronium [place] (Zemuron) 50 mg STK-MED ONCE .ROUTE ; Start 05/04/20 at 08:26; Stop 05/04/20 at 08:26; Status DC Fentanyl Citrate (Fentanyl 2ml Vial) 100 mcg STK-MED ONCE .ROUTE ; Start 05/04/20 at 08:26; Stop 05/04/20 at 08:26; Status DC Neostigmine [place] (Neostigmine Methylsulfate) 5 mg STK-MED ONCE .ROUTE ; Start 05/04/20 at 08:26; Stop 05/04/20 at 08:27; Status DC Midazolam HCl (Versed) 2 mg STK-MED ONCE .ROUTE ; Start 05/04/20 at 08:26; Stop 05/04/20 at 08:27; Status DC Glycopyrrolate (Robinul) 1 mg STK-MED ONCE .ROUTE ; Start 05/04/20 at 08:26; Stop 05/04/20 at 08:27; Status DC Propofol (Diprivan) 200 mg STK-MED ONCE IV ; Start 05/04/20 at 08:27; Stop 05/04/20 at 08:27; Status DC Ketorolac Tromethamine (Toradol 30mg Vial) 30 mg STK-MED ONCE .ROUTE ; Start 05/04/20 at 08:27; Stop 05/04/20 at 08:27; Status DC Ondansetron HCl (Zofran) 4 mg STK-MED ONCE .ROUTE ; Start 05/04/20 at 08:27; Stop 05/04/20 at 08:27; Status DC Lidocaine HCl (Lidocaine Pf 2% Vial) 5 ml STK-MED ONCE .ROUTE ; Start 05/04/20 at 08:27; Stop 05/04/20 at 08:27; Status DC Dexamethasone Sodium Phosphate (Decadron) 4 mg STK-MED ONCE .ROUTE ; Start 05/04/20 at 08:27; Stop 05/04/20 at 08:27; Status DC Fentanyl Citrate (Fentanyl 2ml Vial) 100 mcg STK-MED ONCE .ROUTE ; Start 05/04/20 at 08:36; Stop 05/04/20 at 08:36; Status DC Cellulose (Surgicel Hemostat 4x8) 1 each STK-MED ONCE .ROUTE ; Start 05/04/20 at 09:14; Stop 05/04/20 at 09:14; Status DC Bupivacaine HCl/ Epinephrine Bitart (Sensorcaine-Epi 0.25%-1:[id number] Mpf) 30 ml 1X ONCE INJ Last administered on 05/04/20at 10:01; Start 05/04/20 at 09:30; Stop 05/04/20 at 09:31; Status DC Oxycodone/ Acetaminophen (Percocet 5/325) 1 tab PRN Q4HRS PRN PO MODERATE PAIN Last administered on 05/05/20at 08:56; Start 05/04/20 at 10:30 Oxycodone/ Acetaminophen (Percocet 5/325) 2 tab PRN Q4HRS PRN PO SEVERE PAIN Last administered on 05/04/20at 16:50; Start 05/04/20 at 10:30 Fentanyl Citrate (Fentanyl 2ml Vial) 25 mcg PRN Q5MIN PRN IV MILD PAIN 1-3; Start 05/04/20 at 10:45; Stop 05/04/20 at 20:00; Status DC Fentanyl Citrate (Fentanyl 2ml Vial) 50 mcg PRN Q5MIN PRN IV MODERATE TO SEVERE PAIN Last administered on 05/04/20at 11:13; Start 05/04/20 at 10:45; Stop 05/05/20 at 10:44; Status DC Hydromorphone HCl (Dilaudid) 0.5 mg PRN Q10MIN PRN IV Moderate to severe pain; Start 05/04/20 at 10:45; Stop 05/04/20 at 20:00; Status DC Prochlorperazine Edisylate (Compazine) 5 mg PRN Q6HRS PRN IV Nausea/Vomiting, 1st Choice; Start 05/04/20 at 10:45; Stop 05/04/20 at 20:00; Status DC Insulin Human Lispro (HumaLOG VIAL for OP,RR ONLY) 0-10 units PRN Q1HR PRN SQ PER PROTOCOL Last administered on 05/04/20at 11:07; Start 05/04/20 at 10:45; Stop 05/05/20 at 10:44; Status DC Fentanyl Citrate (Fentanyl 2ml Vial) 100 mcg STK-MED ONCE .ROUTE ; Start 05/04/20 at 10:55; Stop 05/04/20 at 10:55; Status DC Active Scripts Active Metoprolol Succinate ( Xl ) (Metoprolol Succinate) 25 Mg Tab.er.24h 1 Tab PO DAILY 90 Days Levothyroxine Sodium 175 Mcg Tablet 1 Tab PO DAILY06 90 Days Naproxen 375 Mg Tablet 1 Tab PO BID 5 Days Cyclobenzaprine Hcl 10 Mg Tablet 1 Tab PO TID PRN Reported Cymbalta (Duloxetine Hcl) 60 Mg Capsule.dr 1 Cap PO DAILY Vascepa (Icosapent Ethyl) 0.5 Gm Capsule 0.5 Gm PO BID Atorvastatin Calcium 40 Mg Tablet 2 Tab PO DAILY Ozempic (Semaglutide) 1 Mg/0.75 Ml Pen.injctr 1 Mg SQ WEEKLY Metformin Hcl 1,000 Mg Tablet 1,000 Mg PO DAILYWBKFT Lisinopril-Hctz 20-12.5 Mg Tab (Lisinopril/Hydrochlorothiazide) 1 Each Tablet 1 Tab PO DAILY Zofran (Ondansetron Hcl) 4 Mg Tablet 1 Tab PO PRN Q6HRS PRN Ketorolac Tromethamine 10 Mg Tablet 1 Tab PO PRN Q6HRS Percocet 7.5-325 Mg Tablet (Oxycodone/Acetaminophen) 1 Each Tablet 1 Tab PO QIDPRN PRN MDD 4 Tablet(s) 30 Days Vitals/I & O Vital Sign - Last 24 Hours 05/04/20 05/04/20 05/04/20 05/04/20 12:33 12:50 13:00 13:15 Temp 98.0 98.0 Pulse 83 76 86 74 Resp 17 17 18 17 B/P (MAP) 131/79 (96) 126/86 (99) 135/86 (102) 139/89 (106) Pulse Ox 92 89 91 89 O2 Delivery Nasal Cannula Nasal Cannula Nasal Cannula O2 Flow Rate 2.0 2.0 2.0 05/04/20 05/04/20 05/04/20 05/04/20 13:35 14:00 14:30 14:30 Pulse 71 71 71 Resp 17 17 18 B/P (MAP) 136/87 (103) 133/85 (101) 133/85 (101) Pulse Ox 89 91 91 O2 Delivery Nasal Cannula Room Air Room Air Room Air O2 Flow Rate 2.0 05/04/20 05/04/20 05/04/20 05/04/20 14:51 15:00 16:00 16:50 Pulse 90 80 Resp 18 17 B/P (MAP) 125/80 (95) 130/78 (95) Pulse Ox 90 87 O2 Delivery Nasal Cannula Room Air Room Air O2 Flow Rate 2.0 05/04/20 05/04/20 05/04/20 05/04/20 18:00 19:00 20:00 21:33 Temp 98.3 98.3 Pulse 76 Resp 16 B/P (MAP) 117/55 (75) Pulse Ox 95 O2 Delivery Nasal Cannula Nasal Cannula Nasal Cannula Room Air O2 Flow Rate 2.0 2.0 2.0 05/04/20 05/04/20 05/05/20 05/05/20 22:33 23:00 03:00 07:00 Temp 98.2 98.1 98.2 98.2 98.1 98.2 Pulse 69 72 63 Resp 16 16 18 B/P (MAP) 107/64 (78) 137/86 (103) 128/79 (95) Pulse Ox 90 91 90 O2 Delivery Nasal Cannula Nasal Cannula Nasal Cannula Room Air O2 Flow Rate 2.0 2.0 2.0 05/05/20 05/05/20 05/05/20 07:32 08:56 08:56 Pulse 63 B/P (MAP) 128/79 O2 Delivery Room Air Room Air Intake and Output 05/04/20 05/04/20 05/05/20 15:00 23:00 07:00 Intake Total 1050 ml 480 ml Output Total 505 ml Balance 545 ml 480 ml Justifications for Admission Other Justification VINCE LEWIS MD May 05, 2020 12:22
[2020-05-05 15:00] VITALS: BP 118/80
[2020-05-05 19:25] VITALS: BP 112/73
[2020-05-05 23:14] VITALS: BP 126/87
[2020-05-06] MEDS: oxyCODONE/APAP 5/325 1 TAB TABLET PO PRN ×3 (03:00→13:57)
[2020-05-06 03:07] VITALS: BP 138/83
[2020-05-06] MEDS: LEVOTHYROXINE 175 MCG TABLET PO SCH (06:20)
[2020-05-06] MEDS: METOPROLOL SUCC 24HR ER 25 MG TAB.ER.24H. PO SCH (06:23)
[2020-05-06 07:00] VITALS: BP 160/88
[2020-05-06] MEDS: INSULIN LISPRO 300 UNITS/3 ML VIAL. SQ SCH ×2 (07:48→11:55)
--- NOTE | 2020-05-06 10:15 | PDOC ---
[employer] PROGRESS NOTE Date of Service DOS: DATE: 05/06/20 TIME: 10:14 Chief Complaint Chief Complaint Acute cholecystitis DM2 Hypertension Plan: Consult general surgery Continue IV antibiotics Pain control Low-dose insulin sliding scale Anticipate discharge soon History of Present Illness History of Present Illness Patient is a 54-year-old female with past medical history of type 2 diabetes, hyperlipidemia, hypertension, hypothyroidism, who presented to [facility] ER for right upper quadrant pain that started yesterday morning around 0900. Patient reports sharp right upper quadrant pain, 7/10, with associated nausea and vomiting. Right upper quadrant ultrasound performed at [facility] ER showed findings consistent with acute cholecystitis, no biliary dilatation. Patient was transferred to [facility] for general surgery coverage. She currently rates her pain 4/10, improved with medication. 05/05/2020 She is status post cholecystectomy yesterday. Breathing on 2 L O2 by nasal cannula. She reports moderate incisional pain, 3/10, controlled with medication. If we can wean off O2 will discharge tomorrow. Discussed incentive spirometer with patient. 05/06/2020 Patient breathing on room air. States abdominal pain is minimal. Stable for discharge home, with surgery follow-up in 2 weeks. Vitals/I&O Vitals/I&O: Vital Signs Date Time Temp Pulse Resp B/P (MAP) Pulse Ox O2 Delivery O2 Flow Rate FiO2 05/06/20 07:14 Room Air 05/06/20 07:00 97.9 70 18 160/88 (112) 90 97.9 05/05/20 22:52 2.0 I & O 05/05/20 05/05/20 05/06/20 15:00 23:00 07:00 Intake Total 500 ml 300 ml 480 ml Balance 500 ml 300 ml 480 ml Physical Exam General: Alert, Oriented X3, Cooperative Heart: Regular rate, Normal S1, Normal S2 Abdomen: Soft Extremities: No clubbing, No cyanosis Skin: No rashes, No breakdown Labs Labs: Laboratory Tests Test 05/05/20 11:08 05/05/20 16:45 05/05/20 21:48 05/06/20 07:25 Glucose (Fingerstick) 172 mg/dL (70-99) 106 mg/dL (70-99) 154 mg/dL (70-99) 87 mg/dL (70-99) Review of Systems Review of Systems: Denies fever, denies chest pain, denies shortness of breath Assessment and Plan Problems: (1) Acute cholecystitis Comment Review of Relevant I have reviewed the following items caden (where applicable) has been applied. Justifications for Admission Other Justification ARGELIA SHAH MD May 06, 2020 10:15
[2020-05-06 10:43] VITALS: BP 124/86
--- NOTE | 2020-05-06 11:19 | PDOC3 ---
Discharge Summary Visit Information Date of Admission: May 03, 2020 Date of Discharge: May 06, 2020 Brief Hospital Course Allergies Allergies Coded Allergies Type Severity Reaction Last Updated Verified morphine Allergy Severe "ANAPHLYAXIS" 04/24/17 No Vital Signs Vital Signs Date Time Temp Pulse Resp B/P (MAP) Pulse Ox O2 Delivery O2 Flow Rate FiO2 05/06/20 10:43 98.9 71 17 124/86 (99) 92 Room Air 98.9 05/05/20 22:52 2.0 Lab Results Laboratory Tests Test 05/04/20 16:42 05/04/20 21:36 05/05/20 07:39 05/05/20 11:08 Glucose (Fingerstick) 186 mg/dL (70-99) 145 mg/dL (70-99) 113 mg/dL (70-99) 172 mg/dL (70-99) Test 05/05/20 16:45 05/05/20 21:48 05/06/20 07:25 Glucose (Fingerstick) 106 mg/dL (70-99) 154 mg/dL (70-99) 87 mg/dL (70-99) Laboratory Tests Test 05/05/20 16:45 05/05/20 21:48 05/06/20 07:25 Glucose (Fingerstick) 106 mg/dL (70-99) 154 mg/dL (70-99) 87 mg/dL (70-99) Brief Hospital Course Ms. uA is a 54 old female who presented with acute cholecystitis. Consultation requested general surgery. She laparoscopic cholecystectomy. She was stable for discharge with follow-up with general surgery in 2 weeks. Discharge Information Condition at Discharge: Improved Follow Up: Weeks Disposition/Orders: D/C to Home Scheduled Atorvastatin Calcium (Atorvastatin Calcium) 40 Mg Tablet, 2 TAB PO DAILY for high cholestrol, #30 Ref 5 (Reported) Entered as Reported by: BOBBY DHALIWAL on 05/03/202315 Last Action: New Order on 05/03/202315 by BOBBY DHALIWAL Duloxetine Hcl (Cymbalta) 60 Mg Capsule., 1 CAP PO DAILY for depression, #90 Ref 3 (Reported) Entered as Reported by: BOBBY DHALIWAL on 05/03/202315 Last Action: New Order on 05/03/202315 by BOBBY DHALIWAL Icosapent Ethyl (Vascepa) 0.5 Gm Capsule, 0.5 GM PO BID for lowers cholesterol, (Reported) Entered as Reported by: BOBBY DHALIWAL on 05/03/202315 Last Action: New Order on 05/03/202315 by BOBBY DHALIWAL Levothyroxine Sodium (Levothyroxine Sodium) 175 Mcg Tablet, 1 TAB PO DAILY06 for Hypothyroidism for 90 Days, #90 Ref 1 Prescribed by: JAMES MENDIOLA MD on 05/03/202139 Last Action: Continued on 05/03/202140 by JAMES MENDIOLA MD Lisinopril/Hydrochlorothiazide (Lisinopril-Hctz 20-12.5 Mg Tab) 1 Each Tablet, 1 TAB PO DAILY for hypertension, #30 Ref 5 (Reported) Entered as Reported by: BOBBY DHALIWAL on 05/03/202315 Last Action: New Order on 05/03/202315 by BOBBY DHALIWAL Metformin Hcl (Metformin Hcl) 1,000 Mg Tablet, 1,000 MG PO DAILYWBKFT for ANTI- DIABETIC, Ref 0 (Reported) Entered as Reported by: BOBBY DHALIWAL on 05/03/202315 Last Action: New Order on 05/03/202315 by BOBBY DHALIWAL Metoprolol Succinate (Metoprolol Succinate ( Xl )) 25 Mg Tab.er.24h, 1 TAB PO DAILY for HTN for 90 Days, #90 Ref 1 Prescribed by: JAMES MENDIOLA MD on 05/03/202139 Last Action: Continued on 05/03/202140 by JAMES MENDIOLA MD Semaglutide (Ozempic) 1 Mg/0.75 Ml Pen.injctr, 1 MG SQ WEEKLY for diabetes, (Reported) Entered as Reported by: BOBBY DHALIWAL on 05/03/202315 Last Action: New Order on 05/03/202315 by BOBBY DHALIWAL Scheduled PRN Cyclobenzaprine Hcl (Cyclobenzaprine Hcl) 10 Mg Tablet, 1 TAB PO TID PRN for MUSCLE SPASMS, #30 Prescribed by: WARREN KAUFFMAN on 04/24/172002 Ondansetron Hcl (Zofran) 4 Mg Tablet, 1 TAB PO PRN Q6HRS PRN for NAUSEA, #20 (Reported) Entered as Reported by: BOBBY DHALIWAL on 05/03/202315 Last Action: New Order on 05/03/202315 by BOBBY DHALIWAL Discontinued Medications Ketorolac Tromethamine (Ketorolac Tromethamine) 10 Mg Tablet, 1 TAB PO PRN Q6HRS for pain, #20 (Reported) Entered as Reported by: BOBBY DHALIWAL on 05/03/202315 Last Action: New Order on 05/03/202315 by BOBBY DHALIWAL Naproxen (Naproxen) 375 Mg Tablet, 1 TAB PO BID for 5 Days, #10 Ref 0 Prescribed by: WARREN KAUFFMAN on 04/24/172004 Oxycodone/Apap 7.5-325 (Percocet 7.5-325 Mg Tablet ) 1 Each Tablet, 1 TAB PO QIDPRN PRN for PAIN MDD 4 Tablet(s) for 30 Days, #120 Ref 0 (Reported) Entered as Reported by: BOBBY DHALIWAL on 05/03/202315 Last Action: New Order on 05/03/202315 by BOBBY DHALIWAL Justicifation of Admission Dx: Justifications for Admission: Justification of Admission Dx: Yes (Acute cholecystitis) ARGELIA SHAH MD May 06, 2020 11:19
[2020-05-06] MEDS: ENOXAPARIN 40 MG/0.4 ML SYRINGE. SQ SCH (11:56)
--- NOTE | 2020-05-06 14:05 | NUR ---
Discharge Note: JERZY WANG WHICK Discharge instructions and discharge home medications reviewed with Patient and a copy given. All questions have been answered and understanding verbalized. The following instructions and handouts were given: information about medications, follow up appointments, incisional care, etc. Discontinued lines and drains: IV lines in right AC and right wrist removed, catheter tip intact. Patient discharged to home with self care with family members, wheelchair used for mobility to discharge vehicle.
--- NOTE | 2020-05-08 09:07 | PATHOLOGY ---
[facility] Accession Number: [id number] . 01 Material submitted: . gallbladder - GALLBLADDER AND CONTENTS . 01 Clinical history: . ACUTE CHOLECYSTITIS . 02 Diagnosis: Gallbladder, cholecystectomy: - Acute cholecystitis, arising in a background of chronic follicular cholecystitis. - Cholesterolosis. - Lithiasis. (MLK:sonya; 05/07/2020) MBR 05/08/2020 0812 Local . 02 Electronically signed: . Yamil Garcia MD, Pathologist NPI- [id number] . 01 Gross description: . Received in formalin labeled "Phillipscombs, Carleen, gallbladder and contents" is an intact cholecystectomy specimen measuring 7.2 x 3.3 x 3.0 cm. The serosa is yellow-kirk and smooth and the specimen is opened to reveal yellow-green velvety mucosa without polyps or masses. The average wall thickness is 0.5 cm. Within the lumen are multiple green-black calculi measuring in aggregate 1.5 x 1.0 x 0.3 cm and ranging from 0.1-0.3 cm in greatest dimension. [employer] sections of the fundus and body and the cystic duct margin are submitted in A1. [place] [place] [facility] 05/05/2020 1134 Local . 02 Pathologist provided ICD-10: K80.00, K82.4 . 02 CPT . 124834 Specimen Comment: A courtesy copy of this report has been sent to [phone] Specimen Comment: [id number] Specimen Comment: Report sent to DR MENDIOLA / DR LUNA Performed at: [address], [place], [place] [id number] MD Fidel Mackey MD Phone: [phone] Performed at: [address], [place], [place] [id number] MD Bob Wynne MD Phone: [phone]
== END 2020-05-06 14:05 | disposition home or self-care (01) | DRG 418 ==
LOC: 4 NORTH 20:38 → UNDOADMIN 20:51
PROVIDERS: ADMIT Internal Medicine; ATTEND Internal Medicine
PROC: 0FT44ZZ Resection of Gallbladder, Percutaneous Endoscopic Approach (ICD-10-PCS; principal; 2020-05-04 09:30)
DX: K81.0 Acute cholecystitis (principal); E44.1 Mild protein-calorie malnutrition; E03.9 Hypothyroidism, unspecified; E11.9 Type 2 diabetes mellitus without complications; E78.5 Hyperlipidemia, unspecified; I10 Essential (primary) hypertension; Z82.49 Family history of ischemic heart disease and other diseases of the circulatory system; Z90.710 Acquired absence of both cervix and uterus; F32.9 Major depressive disorder, single episode, unspecified; G47.33 Obstructive sleep apnea (adult) (pediatric); Z20.828 Contact with and (suspected) exposure to other viral communicable diseases
CPT/HCPCS: 36415; 80053; 82962; 85025; 87426; 88304; A7015; J1100; J1650; J1815; J1885; J2250; J2405; J2543; J2704; J2710; J3010; J3490; J7030; J7120; U0003; G0378

== ENCOUNTER → 2021-02-08 | Outpatient (CLI) | payer OTHER ==
[~2021-02-08] MED LIST changes: +ATOR40TA59 PO; +DULO60CA6 PO; +GADOTERATE 7.5 MMOL/15ML VIAL. IVP ONE; +ICOS0.5C PO; +KETO10TA PO; +LEVO175T5 PO; +LISI1TAB37 PO; +METF10007 PO; +METO-239 PO; +ONDA4TAB7 PO; +OXYC1TAB19 PO; +SEMA1PEN SQ
--- NOTE | 2021-02-08 10:05 | KCIC ---
EXAM: Brain MRI with and without contrast. HISTORY: Transient ischemic attack. Headache. Left facial and arm numbness. TECHNIQUE: Multiplanar, multisequence magnetic resonance imaging of the brain was performed prior to and following the administration of intravenous contrast. COMPARISON: CT dated 04/24/2017. FINDINGS: There is no acute or subacute infarction. There is no hemorrhage. There is no mass effect o r midline shift. There is no hydrocephalus. There are scattered foci of T2/FLAIR hyperintensity within the cerebral white matter, primarily in a frontal subcortical distribution. The orbits are unremarkable. There is minimal paranasal sinus mucosal thickening. The mastoid air daly ls are clear. There are normal flow voids within the cerebral vessels. There is no suspicious calvari al lesion. There is no suspicious enhancing lesion. IMPRESSION: 1. No acute intracranial finding. 2. Scattered foci of signal change within the cerebral white matter, a nonspecific finding which is m ost commonly due to chronic small vessel disease. The possibility of superimposed changes due to outpatient scheduler dae migraine headaches can be considered given the patient history. The imaging appearance does not f avor demyelinating disease. Electronically signed by: Keisha Ferrer MD (02/08/2021 10:02 AM) [id number]
== END ==
LOC: KCIC MRI 08:39
PROVIDERS: ATTEND Family Medicine
DX: I67.89 Other cerebrovascular disease (principal); Z86.73 Personal history of transient ischemic attack (TIA), and cerebral infarction without residual deficits
CPT/HCPCS: 70553; 82565; A9575